=== PATIENT | female | born 2000 | race African-American/Black ===

== ENCOUNTER 2022-05-05 13:23 | Emergency (ER) | payer MEDICAID ==
--- NOTE | 2022-05-05 14:05 | ED Physician Documentation ---
History of Present Illness - Stated complaint Stated Complaint: HEAD PX - Chief complaint Chief Complaint: General - History obtained from History obtained from: Patient - History of Present Illness Timing: How many weeks ago (2) - Additonal information Additional information: 22-year-old Nayeli George has a history of hypertension. She was placed on labetalol and when she had her child she had an increase in her dose and after the child was born she reduce her dose back down to 100 mg twice per day. She ran out of this about 2 weeks ago. She has been having some symptoms of headache off and on. She states the headaches are relatively easy to control. She has started exercising again. She does not measure her blood pressure. She is interested in restarting her medication as she has a family history of hypertension. The patient feels that her headaches will turn into a migraine if she does not treat them promptly. She feels that the medication when she is taking it has prevented her from having headaches. Review of Systems Constitutional: denies: Fever Eyes: denies: Decreased vision Ears: denies: Ear pain Nose: denies: Rhinorrhea / runny nose, Congestion Throat: denies: Sore throat Cardiac: denies: Chest pain / pressure, Palpitations, Pedal edema, Calf pain Respiratory: denies: Dyspnea, Cough GI: denies: Abdominal Pain, Nausea, Vomiting, Constipation, Diarrhea : denies: Dysuria, Frequency Skin: denies: Rash Musculoskeletal: denies: Neck pain, Back pain, Extremity pain Neurologic: reports: Headache. denies: Generalized weakness, Focal weakness, Numbness, Syncope, Seizure, Confused, Altered mental status, Head injury, LOC PD PAST MEDICAL HISTORY - Present Medications Home Medications: Ambulatory Orders Medication Instructions Recorded Confirmed Labetalol [Trandate] 100 mg PO BID #60 tablet 05/05/22 - Allergies Allergies/Adverse Reactions: Allergies Allergy/AdvReac Type Severity Reaction Status Date / Time ethinyl estradiol Allergy Edema Verified 05/05/22 13:32 [From Loestrin 1.12/11 (21)] norethindrone acetate Allergy Edema Verified 05/05/22 13:32 [From Loestrin 1.5 (21)] PD ED PE NORMAL - Vitals Vital signs reviewed: Yes (hypertensive mild) - General General: Alert and oriented X 3, No acute distress, Well developed/nourished - HEENT HEENT: Atraumatic, PERRL, EOMI - Neck Neck: Supple, no meningeal sign, No bony TTP - Cardiac Cardiac: RRR, No murmur - Respiratory Respiratory: No respiratory distress, Clear bilaterally - Abdomen Abdomen: Normal bowel sounds, Soft, Non tender, Non distended, No organomegaly - Back Back: No CVA TTP, No spinal TTP - Derm Derm: Normal color, Warm and dry, No rash - Extremities Extremities: No deformity, No edema - Neuro Neuro: Alert and oriented X 3, dairy farmer 2-12 intact, No motor deficit, No sensory deficit, Normal speech Eye Opening: Spontaneous Motor: Obeys Commands Verbal: Oriented GCS Score: 15 - Psych Psych: Normal mood, Normal affect Results - Vitals Vitals: Vital Signs - 24 hr 05/05/22 05/05/22 13:26 14:27 Temperature 36.9 C 36.8 C Heart Rate 100 88 Respiratory 16 16 Rate Blood Pressure 139/90 H 130/88 H O2 Saturation 100 100 Oxygen O2 Source Room air PD MEDICAL DECISION MAKING - ED course Complexity details: considered differential, d/w patient ED course: 20-year-old this male with a history of hypertension and migraine headaches has discontinued her hypertensive medicine and now is having problems with migraines. She presents to the emergency department with a mildly elevated blood pressure 139/90 and she is interested in restarting her blood pressure medication mostly because she feels it will prevent her from having headaches. I have encouraged the patient to follow-up with the primary care doctor for continued care and I have agreed to refill her prescription. I find it most likely that the benefit to the patient will be reduced headache. I have asked the patient to comply with the medication, increase her exercise and change her diet all in favor of treating hypertension. Departure - Departure Disposition: Home, Self Care Clinical Impression: Hypertension Qualifiers: Hypertension type: primary hypertension Qualified Code(s): I10 - Essential (primary) hypertension Condition: Stable Instructions: ED HTN Established Follow-Up: Reyes Leigh MD [Provider Admit Priv/Credential] - Prescriptions: Labetalol [Trandate] 100 mg PO BID #60 tablet Comments: Allanah, it looks like your blood pressure medication is still needed. I have e- scribed a month supply to the [facility] in [place]. We are providing you with an emergency department followup referral to a clinic in [place]. The recommendation is that you work on all of the things you can change that affect your blood pressure such as exercise, diet and avoidance of alcohol and stress. The medication you are on is not the recommended medication for [facility] use. Follow up with the primary as recommended. Discharge Date/Time: 05/05/22 14:27
[2022-05-05 14:29] VITALS: BP 130/88
== END 2022-05-05 14:27 | disposition home or self-care (01) ==
LOC: ED 13:23
DX: I10 Essential (primary) hypertension (principal); T44.8X6A Underdosing of centrally-acting and adrenergic-neuron-blocking agents, initial encounter
CPT/HCPCS: 99282; 99284

== ENCOUNTER 2022-05-11 08:49 | Emergency (ER) | payer MEDICAID ==
[2022-05-11 09:18] VITALS: BP 128/82
--- NOTE | 2022-05-11 09:28 | ED Physician Documentation ---
PD HPI SKIN - Stated complaint Stated Complaint: ALLERGY REACTION - Chief complaint Chief Complaint: Allergic Rx - History obtained from History obtained from: Patient - History of Present Illness Timing - onset: Today (awoke with general hives. They are abating coming to ER but not resolved. No obvious trigger for it but has been newly resumed on labetalol for HTN and been taking Ibuprofen regularly the past week for some headache.) Timing - duration: Hours Timing - details: Abrupt onset, Still present (but lessening) Location: [place] Quality / character: Itchy Associated symptoms: No: Facial swelling, Dyspnea, Abd pain, N/V/D Contributing factors: Exposed to medication (Ibuprofen and Labetalol the past week.). No: Recent illness (but household members with N/V/D the past few days.) Similar symptoms before: Has not had sx before Recently seen: Emergency Dept (for HTN and some headache, was resumed on prior BP med of labetaolol and told to take Ibuprofen regularly.) Review of Systems Constitutional: denies: Fever, Chills Nose: denies: Rhinorrhea / runny nose, Congestion Throat: denies: Sore throat Respiratory: denies: Cough Neurologic: reports: Headache (earlier in the week, improved.). denies: Generalized weakness, Focal weakness, Numbness PD PAST MEDICAL HISTORY - Past Medical History Cardiovascular: Hypertension Respiratory: None Endocrine/Autoimmune: None - Present Medications Home Medications: Ambulatory Orders Medication Instructions Recorded Confirmed Labetalol [Trandate] 100 mg PO BID #60 tablet 05/05/22 05/11/22 Cetirizine [ZyrTEC] 10 mg PO BID #10 tablet 05/11/22 Meloxicam [Mobic] 7.5 mg PO BID PRN 10 Days #20 05/11/22 tablet dexAMETHasone [Decadron] 4 mg PO DAILY #5 tablet 05/11/22 - Allergies Allergies/Adverse Reactions: Allergies Allergy/AdvReac Type Severity Reaction Status Date / Time ethinyl estradiol Allergy Edema Verified 05/11/22 09:18 [From Loestrin 1.530 (21)] norethindrone acetate Allergy Edema Verified 05/11/22 09:18 [From Loestrin 1.5/30 (21)] PD ED PE NORMAL - Vitals Vital signs reviewed: Yes - General General: Alert and oriented X 3, No acute distress, Well developed/nourished - HEENT HEENT: Pharynx benign (no swelling nor distortion of voice nor breathing. ) - Neck Neck: Supple, no meningeal sign, No adenopathy - Cardiac Cardiac: RRR, No murmur - Respiratory Respiratory: Clear bilaterally - Derm Derm: Normal color, Warm and dry, Other (still some mild hives noted diffusely. ) - Extremities Extremities: Normal ROM s pain, No edema, No calf tenderness / cord - Neuro Neuro: Alert and oriented X 3, No motor deficit, Normal speech Results - Vitals Vitals: Oxygen O2 Source Room air PD MEDICAL DECISION MAKING - ED course Complexity details: considered differential, d/w patient Departure - Departure Disposition: Home, Self Care Clinical Impression: Allergic reaction Qualifiers: Encounter type: initial encounter Qualified Code(s): T78.40XA - Allergy, unspecified, initial encounter Condition: Stable Instructions: ED Allergic Reaction General Other Prescriptions: dexAMETHasone [Decadron] 4 mg PO DAILY #5 tablet Meloxicam [Mobic] 7.5 mg PO BID PRN 10 Days #20 tablet PRN Reason: Pain Cetirizine [ZyrTEC] 10 mg PO BID #10 tablet Comments: It can be unclear the cause of the allergic reaction/hives. They can be multiple things that can trigger. Sometimes it is something in the environment that is not even well identified. At this point given some other people with illness in the house, it is possible that you are about to develop the stomach flu like the others and this is a early sign of it. See if you develop other symptoms through the day. More probable would be the medications you are on this past week. Between the labetalol and the ibuprofen, it be more common to be allergic to ibuprofen. I would stop the ibuprofen and changed to Tylenol 650 mg 4 times daily as needed for the headache. Continue the labetalol for now. See how you do with your hives over the next few days. If they go away in stay away over the next week, even after done the medication for allergy, then you could potentially try a different anti-inflammatory such as meloxicam and see if you do okay. Meanwhile I would use cetirizine antihistamine twice daily and Decadron steroid daily for 5 days presuming the allergic reaction could linger for several days. If you have persistent hives or recurrent hives despite the above, then consideration would be allergy testing to see what else might be causing your symptoms. Or changing from the Labetalol. I sent your prescriptions to [facility] pharmacy. Discharge Date/Time: 05/11/22 10:23
[2022-05-11] MEDS ORDERED: ACETAMINOPHEN 325 MG TABLET PO STA (10:04)
[2022-05-11] MEDS ORDERED: CHERRY SYRUP 10 ML UDC PO ONE (10:04)
[2022-05-11] MEDS ORDERED: DEXAMETHASONE 10 MG/ML VIAL PO STA (10:04)
[2022-05-11] MEDS ORDERED: CETIRIZINE 10 MG TABLET PO STA (10:04)
== END 2022-05-11 10:23 | disposition home or self-care (01) ==
LOC: ED 08:49
DX: T78.40XA Allergy, unspecified, initial encounter (principal); I10 Essential (primary) hypertension
CPT/HCPCS: 99283; 99284; A9270

== ENCOUNTER 2022-06-13 16:43 | Emergency (ER) | payer MEDICAID ==
[2022-06-13 17:58] LABS: BASOPHILS # (AUTO) 0.1 10^3/uL (0.0-0.1); BASOPHILS % (AUTO) 0.5 %; EOSINOPHILS # (AUTO) 0.4 10^3/uL (0.0-0.7); EOSINOPHILS % (AUTO) 2.5 %; HCT - HEMATOCRIT 28.8 % (37.0-47.0); HGB - HEMOGLOBIN 8.7 g/dL (12.0-16.0); LYMPHOCYTES % (AUTO) 19.4 %; MEAN CORPUSCULAR HEMOGLOBIN 22.6 pg (27.0-31.0); MEAN CORPUSCULAR HGB CONC 30.2 g/dL (32.0-36.0); MEAN CORPUSCULAR VOLUME 74.8 fL (81.0-99.0); MEAN PLATELET VOLUME 8.9 fL (7.9-10.8); MONOCYTES # (AUTO) 1.1 10^3/uL (0.0-1.0); MONOCYTES % (AUTO) 6.7 %; NEUTROPHILS # (AUTO) 10.9 10^3/uL (1.5-6.6); NEUTROPHILS % (AUTO) 69.3 %; PLT - PLATELET COUNT 543 10^3/uL (130-450); RED BLOOD COUNT 3.85 10^6/uL (4.20-5.40); RED CELL DISTRIBUTION WIDTH 15.9 % (12.0-15.0); WHITE BLOOD COUNT 15.7 x10^3/uL (4.8-10.8)
[2022-06-13 18:13] LABS: ALBUMIN 3.1 g/dL (3.2-5.5); ALBUMIN/GLOBULIN RATIO 0.5 (1.0-2.2); BILIRUBIN,TOTAL 0.5 mg/dL (0.2-1.0); CALCIUM 8.7 mg/dL (8.5-10.3); CREATININE 0.8 mg/dL (0.4-1.0); POTASSIUM 3.4 mmol/L (3.5-5.0); TOTAL PROTEIN 9.5 g/dL (6.7-8.2)
[2022-06-13] MEDS ORDERED: SODIUM CHLORIDE 0.9% 1,000 ML IV STA (21:53)
[2022-06-13] MEDS ORDERED: HYDROmorphone 1 MG/ML CARPUJECT IVP STA (22:27)
[2022-06-13 22:29] LABS: HCG,QUALITATIVE BLOOD NEGATIVE
[2022-06-13] MEDS ORDERED: iohexoL-300 100 ML VIAL ONE (22:32)
[2022-06-13] MEDS ORDERED: iohexoL-300 100 ML VIAL IVP ONE (23:17)
[2022-06-13 23:48] LABS: BILIRUBIN,URINE NEGATIVE (NEGATIVE); GLUCOSE, URINE (UA) NEGATIVE (NEGATIVE); KETONES,URINE (UA) 40 mg/dL (NEGATIVE); LEUKOCYTE ESTERASE, URINE NEGATIVE (NEGATIVE); NITRITE,URINE NEGATIVE (NEGATIVE); OCCULT BLOOD,URINE NEGATIVE (NEGATIVE); PROTEIN,URINE NEGATIVE (NEGATIVE); UROBILINOGEN,URINE 0.2 (NORMAL) E.U./dL (NORMAL)
[2022-06-13 23:51] LABS: CLARITY,URINE CLEAR (CLEAR)
[2022-06-14] MEDS ORDERED: SODIUM CHLORIDE 0.9% 1,000 ML IV STA (00:03)
--- NOTE | 2022-06-14 00:16 | CT Report ---
PROCEDURE: ABDOMEN/PELVIS W INDICATIONS: low abd pain, bloody stools, untreated crohns CONTRAST: Omni 300 100ml TECHNIQUE: After the administration of intravenous contrast, 5 mm thick sections acquired from the diaphragms to the symphysis. 5 mm thick coronal and sagittal reformats were acquired. For radiation dose reducti on, the following was used: automated exposure control, adjustment of mA and/or kV according to tre ent size. COMPARISON: None. FINDINGS: Image quality: There is metallic streak artifact in the pelvis.. Lung bases: Unremarkable. Heart: Heart is normal in size. ABDOMEN: Liver: No mass lesion. Gallbladder: Within normal limits without calcified gallstones. Biliary ducts: No biliary ductal dilatation. Pancreas: Unremarkable. Spleen: Normal in size. Adrenal Glands: No adrenal nodules. Kidneys and Ureters: No hydronephrosis. Stomach and Bowel: Stomach and small bowel loops are normal in caliber and wall thickness. The appen raymond is normal in appearance. There is mild wall thickening throughout the colon with mucosal enhancem ent and mild pericolic fat stranding. Findings are consistent with a moreno-colitis. Peritoneum:There is a small amount of intraperineal free fluid. No discrete abscess identified. No f ree air. Ventral Wall: No hernia. Abdominal Nodes: No retroperitoneal or mesenteric adenopathy by size criteria. Vessels: Aorta and inferior vena cava are normal in size. PELVIS: Pelvic Organs: Unremarkable. Bladder: Unremarkable. Pelvic Nodes: No enlarged lymph nodes. Miscellaneous: No inguinal hernias are seen. Bones: Bilateral surgical screws are demonstrated within the femoral necks. Visualized osseous struc tures demonstrate no suspicious focal lesions. IMPRESSION: 1. Diffuse colonic wall thickening and enhancement consistent with a pancolitis. The findings are lik russ secondary to patient's reported history of Crohn's disease. No evidence of bowel obstruction or a bscess. Reviewed by: Tacos Romo MD on 06/14/2022 12:24 AM PST Approved by: Tacos Romo MD on 06/14/2022 12:24 AM PST Station ID: [id number]
[2022-06-14] MEDS ORDERED: DEXAMETHASONE 10 MG/ML VIAL IV STA (00:38)
[2022-06-14] MEDS ORDERED: ONDANSETRON 4 MG/2 ML VIAL IVP STA (00:41)
--- NOTE | 2022-06-14 00:53 | ED Physician Documentation ---
PD HPI ABD PAIN - Stated complaint Stated Complaint: ABD PX - Chief complaint Chief Complaint: Abd Pain - History obtained from History obtained from: Patient - Additional information Additional information: The patient comes the emergency department with chief complaint of intermittent bloody stools over the last year and lower abdominal pain over the last week. She has a history of Crohn's disease diagnosis a few years ago in [place], but she states she never complied with the treatment regimen she was supposed be on. She states it was not bothering her that much so she just decided not to take the medication. The patient states that she feels that her coloring is as it usually does, and that she is quite pale naturally, but she has been feeling somewhat tired lately. She is also having bloody output when she has a bowel movement. The patient states she has chronic diarrhea from her Crohn's disease. No fevers or chills. She states the pain in her low abdomen comes in waves. Mild nausea, no vomiting. Review of Systems Ten Systems: 10 systems reviewed and negative Constitutional: reports: Reviewed and negative Eyes: reports: Reviewed and negative Ears: reports: Reviewed and negative Nose: reports: Reviewed and negative Throat: reports: Reviewed and negative Cardiac: reports: Reviewed and negative Respiratory: reports: Reviewed and negative GI: reports: Abdominal Pain, Nausea, Diarrhea, Bloody / black stool. denies: Vomiting : reports: Reviewed and negative Skin: reports: Reviewed and negative Musculoskeletal: reports: Reviewed and negative Neurologic: reports: Reviewed and negative Psychiatric: reports: Reviewed and negative Endocrine: reports: Reviewed and negative Immunocompromised: reports: Reviewed and negative PD PAST MEDICAL HISTORY - Past Medical History Cardiovascular: Hypertension Respiratory: None Endocrine/Autoimmune: None - Present Medications Home Medications: Ambulatory Orders Medication Instructions Recorded Confirmed Labetalol [Trandate] 100 mg PO BID #60 tablet 05/05/22 06/13/22 Ferrous Sulfate [Feosol] 325 mg PO DAILY #60 tablet 06/14/22 predniSONE [Deltasone] 10 mg PO [id number] #42 tab 06/14/22 - Allergies Allergies/Adverse Reactions: Allergies Allergy/AdvReac Type Severity Reaction Status Date / Time ethinyl estradiol Allergy Edema Verified 06/13/22 17:20 [From Loestrin 1.12/11 (21)] norethindrone acetate Allergy Edema Verified 06/13/22 17:20 [From Loestrin 1.12/11 (21)] PD ED PE NORMAL - Vitals Vital signs reviewed: Yes - General General: Alert and oriented X 3, No acute distress, Well developed/nourished - HEENT HEENT: Atraumatic, PERRL, EOMI, Moist mucous membranes - Neck Neck: Supple, no meningeal sign - Cardiac Cardiac: RRR, No murmur, Strong equal pulses - Respiratory Respiratory: No respiratory distress, Clear bilaterally - Abdomen Abdomen: Soft, Non distended, Other (Moderate lower abdominal tenderness bilaterally, no rebound or guarding.) - Derm Derm: Normal color, Warm and dry, No rash - Extremities Extremities: No deformity, No edema - Neuro Neuro: Alert and oriented X 3, wafer substrate tester 2-12 intact, Normal speech, Other (Grossly intact) - Psych Psych: Normal mood, Normal affect Results - Vitals Vitals: Vital Signs - 24 hr 06/13/22 06/13/22 06/13/22 17:14 22:09 22:42 Temperature 37.5 C Heart Rate 120 H 109 H 106 H Heart Rate [ Radial] Respiratory 16 17 15 Rate Blood Pressure 133/79 H 119/76 142/73 H Blood Pressure [Left Brachial artery] O2 Saturation 99 100 100 06/14/22 06/14/22 06/14/22 00:00 01:32 02:06 Temperature 37.1 C Heart Rate 105 H 110 H Heart Rate [ 120 H Radial] Respiratory 16 17 18 Rate Blood Pressure 122/85 H 108/73 Blood Pressure 101/65 [Left Brachial artery] O2 Saturation 100 100 99 06/14/22 06/14/22 06/14/22 02:23 03:36 03:41 Temperature 36.5 C 36.5 C Heart Rate 93 Heart Rate [ 112 H 99 Radial] Respiratory 15 16 16 Rate Blood Pressure 106/69 Blood Pressure 105/73 106/69 [Left Brachial artery] O2 Saturation 98 98 97 06/14/22 06/14/22 04:22 05:00 Temperature 36.6 C 36.6 C Heart Rate 88 Heart Rate [ 99 Radial] Respiratory 16 16 Rate Blood Pressure 112/75 Blood Pressure 110/64 [Left Brachial artery] O2 Saturation 99 99 Oxygen O2 Source Room air - Labs Labs: Laboratory Tests 06/13/22 06/13/22 06/13/22 17:52 17:52 17:52 WBC 15.7 H RBC 3.85 L Hgb 8.7 L Hct 28.8 L MCV 74.8 L MCH 22.6 L MCHC 30.2 L RDW 15.9 H Plt Count 543 H MPV 8.9 Neut # (Auto) 10.9 H Lymph # (Auto) 3.0 [place] # (Auto) 1.1 H Eos # (Auto) 0.4 Baso # (Auto) 0.1 Absolute Nucleated RBC 0.00 Nucleated RBC % 0.0 Sodium 133 L Potassium 3.4 L Chloride 93 L Carbon Dioxide 27 Anion Gap 13.0 BUN 7 Creatinine 0.8 Estimated GFR (MDRD) 109 Glucose 88 Calcium 8.7 Total Bilirubin 0.5 AST 15 ALT 12 Alkaline Phosphatase 50 Total Protein 9.5 H Albumin 3.1 L Globulin 6.4 H Albumin/Globulin Ratio 0.5 L Lipase 22 Serum HCG, Qual NEGATIVE Urine Color Urine Clarity Urine pH Ur Specific [place] Urine Protein Urine Glucose (UA) Urine Ketones Urine Occult Blood Urine Nitrite Urine Bilirubin Urine Urobilinogen Ur Leukocyte Esterase Ur Microscopic Review Urine Culture Comments Blood Type Blood Type Recheck Antibody Screen Crossmatch IS Only 06/13/22 06/13/22 06/13/22 17:52 22:37 23:29 WBC RBC Hgb Hct MCV MCH MCHC RDW Plt Count MPV Neut # (Auto) Lymph # (Auto) [place] # (Auto) Eos # (Auto) Baso # (Auto) Absolute Nucleated RBC Nucleated RBC % Sodium Potassium Chloride Carbon Dioxide Anion Gap BUN Creatinine Estimated GFR (MDRD) Glucose Calcium Total Bilirubin AST ALT Alkaline Phosphatase Total Protein Albumin Globulin Albumin/Globulin Ratio Lipase Serum HCG, Qual Urine Color YELLOW Urine Clarity CLEAR Urine pH 7.0 Ur Specific [place] <=1.005 Urine Protein NEGATIVE Urine Glucose (UA) NEGATIVE Urine Ketones 40 H Urine Occult Blood NEGATIVE Urine Nitrite NEGATIVE Urine Bilirubin NEGATIVE Urine Urobilinogen 0.2 (NORMAL) Ur Leukocyte Esterase NEGATIVE Ur Microscopic Review NOT INDICATED Urine Culture Comments NOT INDICATED Blood Type A POSITIVE Blood Type Recheck A POSITIVE Antibody Screen NEGATIVE Crossmatch IS Only See Detail 06/14/22 06/14/22 00:55 05:25 WBC 11.6 H 13.6 H RBC 3.05 L 3.79 L Hgb 6.9 L* 8.9 L Hct 23.0 L 28.8 L MCV 75.4 L 76.0 L MCH 22.6 L 23.5 L MCHC 30.0 L 30.9 L RDW 15.9 H 16.1 H Plt Count 415 478 H MPV 8.8 8.6 Neut # (Auto) 7.0 H 11.5 H Lymph # (Auto) 3.1 1.6 [place] # (Auto) 0.9 0.2 Eos # (Auto) 0.4 0.1 Baso # (Auto) 0.0 0.1 Absolute Nucleated RBC 0.00 0.00 Nucleated RBC % 0.0 0.0 Sodium Potassium Chloride Carbon Dioxide Anion Gap BUN Creatinine Estimated GFR (MDRD) Glucose Calcium Total Bilirubin AST ALT Alkaline Phosphatase Total Protein Albumin Globulin Albumin/Globulin Ratio Lipase Serum HCG, Qual Urine Color Urine Clarity Urine pH Ur Specific [place] Urine Protein Urine Glucose (UA) Urine Ketones Urine Occult Blood Urine Nitrite Urine Bilirubin Urine Urobilinogen Ur Leukocyte Esterase Ur Microscopic Review Urine Culture Comments Blood Type Blood Type Recheck Antibody Screen Crossmatch IS Only - Rads (name of study) CT abdomen pelvis Radiology: Final report received, EMP read indepedently, See rad report (Pancolitis, consistent with Crohn's. Otherwise unremarkable.) PD MEDICAL DECISION MAKING - ED course Complexity details: reviewed results, re-evaluated patient, considered differential, d/w patient ED course: The patient was treated symptomatically with IV fluids, Zofran, and Dilaudid, and worked up with labs and CT scan of the abdomen pelvis. Patient's labs showed a hemoglobin of 8.7. Her CT showed pancolitis consistent with Crohn's, at which time she was given a bolus dose of Decadron. Patient was given a total of 2 L of 0.9 normal saline in the emergency department and a CBC was repeated, and found to be 6.9. The patient consented to a transfusion and was transfused a unit of packed red blood cells. She does admit she is supposed to be taking iron pills but just has not felt like taking them and so she has not. I discussed with the patient that she needs to be compliant with her medication regimen, or she will continue to have complications from her Crohn's. I am prescribing iron again, as well as a steroid taper for the patient. At this point in time, there is no bed availability at any of the [facility], and our hospital is full. The patient is advised about the importance of getting established with primary care and being referred to GI. She states she will take the medication and follow-up as directed. Departure - Departure Disposition: 01 Home, Self Care Clinical Impression: Symptomatic anemia Acute Crohn's disease Qualifiers: Digestive disease complication type: with rectal bleeding Qualified Code(s): K50.911 - Crohn's disease, unspecified, with rectal bleeding Condition: Stable Instructions: Bleeding Gastrointestinal, ED Anemia Type Not Specified, ED Inflam Bowel Disease Crohn Follow-Up: Xiomy Egan ARNP [Credentialed Staff Provider] - Prescriptions: predniSONE [Deltasone] 10 mg PO [id number] #42 tab Ferrous Sulfate [Feosol] 325 mg PO DAILY #60 tablet Comments: Your CT scan shows findings consistent with Crohn's disease. Your blood levels were quite low today, because you have not been treated your Crohn's disease and you have been losing blood from the bloody stools you been having. We will put you on a prednisone taper to calm the flare down, and we will also give you a prescription for the iron tablets. It is very important that you take the iron every day and that you get established with a primary care physician immediately. If you continue to have bleeding and pain, and you feel as though you are getting weak again, it is best, if you are able, to go to a facility that has a gastroenterology specialist, such as [facility], or [facility] in [place].
[2022-06-14 01:03] LABS: BASOPHILS % (AUTO) 0.3 %; EOSINOPHILS # (AUTO) 0.4 10^3/uL (0.0-0.7); EOSINOPHILS % (AUTO) 3.4 %; LYMPHOCYTES # (AUTO) 3.1 10^3/uL (1.5-3.5); LYMPHOCYTES % (AUTO) 26.2 %; MEAN CORPUSCULAR HEMOGLOBIN 22.6 pg (27.0-31.0); MEAN CORPUSCULAR VOLUME 75.4 fL (81.0-99.0); MEAN PLATELET VOLUME 8.8 fL (7.9-10.8); MONOCYTES # (AUTO) 0.9 10^3/uL (0.0-1.0); MONOCYTES % (AUTO) 7.7 %; NEUTROPHILS % (AUTO) 60.7 %; PLT - PLATELET COUNT 415 10^3/uL (130-450); RED BLOOD COUNT 3.05 10^6/uL (4.20-5.40); RED CELL DISTRIBUTION WIDTH 15.9 % (12.0-15.0); WHITE BLOOD COUNT 11.6 x10^3/uL (4.8-10.8)
[2022-06-14 01:09] LABS: HGB - HEMOGLOBIN 6.9 g/dL (12.0-16.0)
[2022-06-14 05:03] VITALS: BP 112/75
[2022-06-14 05:35] LABS: BASOPHILS # (AUTO) 0.1 10^3/uL (0.0-0.1); BASOPHILS % (AUTO) 0.5 %; EOSINOPHILS # (AUTO) 0.1 10^3/uL (0.0-0.7); EOSINOPHILS % (AUTO) 0.6 %; HCT - HEMATOCRIT 28.8 % (37.0-47.0); HGB - HEMOGLOBIN 8.9 g/dL (12.0-16.0); LYMPHOCYTES # (AUTO) 1.6 10^3/uL (1.5-3.5); LYMPHOCYTES % (AUTO) 11.5 %; MEAN CORPUSCULAR HEMOGLOBIN 23.5 pg (27.0-31.0); MEAN CORPUSCULAR HGB CONC 30.9 g/dL (32.0-36.0); MEAN PLATELET VOLUME 8.6 fL (7.9-10.8); MONOCYTES # (AUTO) 0.2 10^3/uL (0.0-1.0); MONOCYTES % (AUTO) 1.5 %; NEUTROPHILS # (AUTO) 11.5 10^3/uL (1.5-6.6); NEUTROPHILS % (AUTO) 84.4 %; PLT - PLATELET COUNT 478 10^3/uL (130-450); RED BLOOD COUNT 3.79 10^6/uL (4.20-5.40); RED CELL DISTRIBUTION WIDTH 16.1 % (12.0-15.0); WHITE BLOOD COUNT 13.6 x10^3/uL (4.8-10.8)
== END 2022-06-14 06:34 | disposition home or self-care (01) ==
LOC: ED 16:43
DX: D64.89 Other specified anemias (principal); K50.911 Crohn's disease, unspecified, with rectal bleeding
CPT/HCPCS: 36415; 36430; 74177; 80053; 81003; 83690; 84703; 85025; 86850; 86900; 86901; 86920; 96374; 96375; 99284; 99285; J1170; P9016; Q9967; 81001; 87086